=== PATIENT | male | born 1960 | race African-American/Black ===

== ENCOUNTER 2021-03-10 19:11 | Emergency (ER) | payer OTHER ==
[~2021-03-10] VITALS: Ht 172.7 cm; Wt 80.0 kg
[2021-03-10] MEDS ORDERED: KETOROLAC 60MG/2ML VIAL IM ONE (19:30)
[2021-03-10] MEDS ORDERED: MELO15TA13 MT (20:48)
[2021-03-10 22:04] VITALS: BP 129/84
== END 2021-03-10 22:05 | disposition home or self-care (01) ==
LOC: EDBD 19:11 → ER 19:11
DX: M19.012 Primary osteoarthritis, left shoulder (principal); M25.512 Pain in left shoulder; E78.00 Pure hypercholesterolemia, unspecified; I10 Essential (primary) hypertension; Z79.899 Other long term (current) drug therapy
CPT/HCPCS: 73030; 96372; 99283; J1885